=== PATIENT | female | born 1975 | race Hispanic/Latino ===

== ENCOUNTER → 2018-09-08 | Outpatient (CLI) | payer OTHER | END | disposition home or self-care (01) | LOC: RAH 12:59 | PROVIDERS: ATTEND Family Medicine | DX: N60.02 Solitary cyst of left breast (principal); N63.21 Unspecified lump in the left breast, upper outer quadrant | CPT/HCPCS: 76641; 77066 ==

== ENCOUNTER → 2018-12-16 | Outpatient (CLI) | payer OTHER | END | disposition home or self-care (01) | LOC: OIH 11:02 | PROVIDERS: ATTEND Internal Medicine | DX: M06.4 Inflammatory polyarthropathy (principal) | CPT/HCPCS: 73130 ==

== ENCOUNTER 2020-03-28 05:35 | Inpatient (IN) | payer OTHER ==
[~2020-03-28] VITALS: Ht 160 cm; Wt 102.4 kg
[2020-03-28] MEDS ORDERED: METOCLOPRAMIDE 10 MG/2 ML VIAL ONE (06:01)
[2020-03-28] MEDS ORDERED: ONDANSETRON 4MG INJ ONE ×2 (06:01→10:13)
[2020-03-28] MEDS ORDERED: PANTOPRAZOLE 40 MG/VIAL ONE (06:02)
[2020-03-28] MEDS ORDERED: FAMOTIDINE 20MG VIAL IV ONE (06:02)
[2020-03-28 06:39] LABS: BASOPHILS % (AUTO) 0.5 % (0.0-5.0); EOSINOPHILS % (AUTO) 0.4 % (0.0-8.0); HEMATOCRIT 37.9 % (36-48); LYMPHOCYTES % (AUTO) 21.2 % (21.0-51.0); MEAN CORPUSCULAR HEMOGLOBIN 27.7 pg (27.0-33.0); MEAN CORPUSCULAR HGB CONC 33.5 g/dL (32.0-36.0); MEAN CORPUSCULAR VOLUME 82.8 fL (79-99); MONOCYTES % (AUTO) 5.8 % (3.0-13.0); NEUTROPHILS % (AUTO) 71.6 % (40.0-77.0); PLATELET COUNT (AUTO) 378 K/uL (130-400); RED BLOOD CELL COUNT(AUTO) 4.58 MIL/uL (4.00-5.50); RED CELL DISTRIBUTION WIDTH 12.6 % (11.0-15.5); WHITE BLOOD COUNT (AUTO) 10.2 K/uL (4.8-10.8)
[2020-03-28 06:41] LABS: APPEARANCE,URINE CLEAR (CLEAR); BILIRUBIN,URINE NEGATIVE (NEGATIVE); COLOR,URINE YELLOW (YELLOW); GLUCOSE, URINE (UA) NEGATIVE (NEGATIVE); KETONES,URINE NEGATIVE (NEGATIVE); LEUKOCYTE ESTERASE ,URINE NEGATIVE (NEGATIVE); NITRATE,URINE NEGATIVE (NEGATIVE); OCCULT BLOOD,URINE LARGE (NEGATIVE); PROTEIN,URINE 30 mg/dL (NEGATIVE); UROBILINOGEN,URINE 0.2 mg/dL (0.2-1.0)
[2020-03-28 06:49] LABS: POTASSIUM 3.7 mmol/L (3.5-5.1)
[2020-03-28 06:52] LABS: BACTERIA,URINE Few /HPF (None Seen); WBC,URINE 0-1 /HPF (0-1)
[2020-03-28 07:00] LABS: BILIRUBIN,TOTAL 0.3 mg/dL (0.2-1.0); TOTAL PROTEIN, SERUM 8.5 g/dL (6.0-8.3)
[2020-03-28 07:03] LABS: INR 0.97 (0.85-1.15); PROTHROMBIN TIME 10.4 SEC (9.6-11.6)
[2020-03-28 07:04] LABS: PARTIAL THROMBOPLASTIN TIME 29.6 SEC (26.3-35.5)
[2020-03-28] MEDS ORDERED: LIDOCAINE HCL 2% VISCOUS 15 ML UDCUP ONE (07:28)
[2020-03-28] MEDS ORDERED: DiphenhydrAMINE HCL 50 MG/ML VIAL ONE (07:29)
[2020-03-28] MEDS ORDERED: MAG/ALUM/SIMETH 30 ML UDCUP ONE (07:29)
[2020-03-28] MEDS ORDERED: KETOROLAC 30MG VIAL (30MG/ML) ONE ×2 (07:42→07:46)
[2020-03-28] MEDS ORDERED: 0.9%NACL 1000ML 1,000 ML IV ONE ×2 (07:54→13:56)
[2020-03-28] MEDS ORDERED: IOHEXOL-350 75 ML VIAL IV ONE (08:26)
[2020-03-28] MEDS ORDERED: MORPHINE 4 MG SYG ONE (10:13)
[2020-03-28] MEDS ORDERED: ACETAMINOPHEN 325 MG TAB PO PRN (12:30)
[2020-03-28] MEDS ORDERED: KETOROLAC 15MG/ML VIAL (15MG/ML) IV PRN (12:30)
[2020-03-28] MEDS: 0.9%NACL 1000ML 1,000 ML IV SCH ×2 (12:30→23:50)
[2020-03-28] MEDS ORDERED: MORPHINE 2 MG SYG IVP PRN (12:30)
[2020-03-28 18:00] VITALS: BP 120/80
[2020-03-28] MEDS ORDERED: FLUT16H EN (19:08)
[2020-03-28] MEDS ORDERED: CETI10TA87 PO (19:09)
[2020-03-28 20:29] VITALS: BP 121/74
[2020-03-28 23:32] VITALS: BP 134/78
[2020-03-29] VITALS (22 sets, daily range): BP systolic 103–141; BP diastolic 61–89
[2020-03-29] MEDS ORDERED: KETOROLAC 30MG VIAL (30MG/ML) ONE ×3 (03:19→19:37)
[2020-03-29 06:16] LABS: BASOPHILS % (AUTO) 0.4 % (0.0-5.0); EOSINOPHILS % (AUTO) 0.6 % (0.0-8.0); HEMATOCRIT 34.1 % (36-48); LYMPHOCYTES % (AUTO) 25.1 % (21.0-51.0); MEAN CORPUSCULAR HGB CONC 33.1 g/dL (32.0-36.0); MEAN CORPUSCULAR VOLUME 84.6 fL (79-99); MONOCYTES % (AUTO) 6.6 % (3.0-13.0); NEUTROPHILS % (AUTO) 66.6 % (40.0-77.0); PLATELET COUNT (AUTO) 291 K/uL (130-400); RED BLOOD CELL COUNT(AUTO) 4.03 MIL/uL (4.00-5.50); RED CELL DISTRIBUTION WIDTH 12.7 % (11.0-15.5); WHITE BLOOD COUNT (AUTO) 7.1 K/uL (4.8-10.8)
[2020-03-29 06:34] LABS: ALBUMIN 3.1 g/dL (3.5-5.0); BILIRUBIN,TOTAL 0.3 mg/dL (0.2-1.0); CREATININE 0.8 mg/dL (0.5-1.5); POTASSIUM 3.8 mmol/L (3.5-5.1); TOTAL PROTEIN, SERUM 6.9 g/dL (6.0-8.3)
[2020-03-29] MEDS: 0.9%NACL 1000ML 1,000 ML IV SCH ×2 (09:45→18:30)
[2020-03-29] MEDS ORDERED: LIDOCAINE HCL MPF 1% 5ML VIAL ONE (09:50)
[2020-03-29] MEDS ORDERED: SUCCINYLCHOLINE 200MG/10ML SYR ONE (09:50)
[2020-03-29] MEDS ORDERED: PROPOFOL 10 MG/ML 20ML VIAL IV ONE (09:51)
[2020-03-29] MEDS ORDERED: ROCURONIUM 10MG/1ML SYR 10 MG/ML ML ONE (09:51)
[2020-03-29] MEDS ORDERED: FENTANYL CITRATE PF 50 MCG/1 ML 2ML VIAL ONE (09:51)
[2020-03-29] MEDS ORDERED: GLYCOPYRROLATE 1 MG/5 ML SYRINGE ONE (10:41)
[2020-03-29] MEDS ORDERED: NEOSTIGMINE 5MG/5ML SYR IV ONE (10:41)
[2020-03-29] MEDS ORDERED: ONDANSETRON 4MG INJ ONE (10:41)
[2020-03-29] MEDS ORDERED: IOHEXOL 350 MG/ML 100ML INFUS..BTL IV ONE (10:49)
[2020-03-29] MEDS ORDERED: CEFAZOLIN SODIUM 1 GM VIAL ONE (11:09)
[2020-03-29] MEDS ORDERED: CEFAZOLIN SODIUM 1 GM VIAL IVP ONE (11:09)
[2020-03-29] MEDS: ONDANSETRON 4MG INJ IVP PRN ×2 (14:10→23:47)
[2020-03-29] MEDS: IBUPROFEN 800 MG TAB PO SCH ×2 (19:23)
[2020-03-29] MEDS: TAMSULOSIN HCL 0.4 MG CAP.ER.24H PO SCH ×2 (19:23)
[2020-03-29] MEDS ORDERED: LACTULOSE 20 GM/30 ML UDCUP ONE (19:33)
[2020-03-29] MEDS: LACTULOSE 20 GM/30 ML UDCUP PO SCH (21:00)
[2020-03-29] MEDS ORDERED: HYDROMORPHONE 0.5 MG SYG (0.5MG/0.5ML) ONE (23:37)
[2020-03-29] MEDS ORDERED: HYDROMORPHONE 0.5 MG SYG (0.5MG/0.5ML) IVP ONE (23:45)
[2020-03-30] VITALS: BP 156/85
[2020-03-30] MEDS ORDERED: KETOROLAC 30MG VIAL (30MG/ML) ONE (03:25)
[2020-03-30 04:00] VITALS: BP 116/76
[2020-03-30] MEDS: 0.9%NACL 1000ML 1,000 ML IV SCH (04:42)
[2020-03-30 04:47] LABS: MEAN CORPUSCULAR HEMOGLOBIN 27.8 pg (27.0-33.0); MEAN CORPUSCULAR HGB CONC 32.7 g/dL (32.0-36.0); MEAN CORPUSCULAR VOLUME 84.8 fL (79-99); PLATELET COUNT (AUTO) 294 K/uL (130-400); RED BLOOD CELL COUNT(AUTO) 3.89 MIL/uL (4.00-5.50); RED CELL DISTRIBUTION WIDTH 12.8 % (11.0-15.5); WHITE BLOOD COUNT (AUTO) 10.6 K/uL (4.8-10.8)
[2020-03-30 05:07] LABS: ALBUMIN 3.3 g/dL (3.5-5.0); BILIRUBIN,TOTAL 0.3 mg/dL (0.2-1.0); CREATININE 0.7 mg/dL (0.5-1.5); POTASSIUM 3.3 mmol/L (3.5-5.1); TOTAL PROTEIN, SERUM 7.2 g/dL (6.0-8.3)
[2020-03-30 06:53] LABS: LYMPHOCYTES % (MANUAL) 16 % (22-44); MAN.DIFF COMMENT-IMPRESSION MANUAL DIFFERENTIAL; MONOCYTES % (MANUAL) 5 % (2-9); PLATELET MORPHOLOGY COMMENT ADEQUATE; SEGMENTED NEUTROPHILS % 79 % (40-70)
[2020-03-30] MEDS: LACTULOSE 20 GM/30 ML UDCUP PO SCH (09:00)
[2020-03-30 09:41] VITALS: BP 119/74
[2020-03-30] MEDS ORDERED: POTASSIUM CHLORIDE 10% ELIXIR 20 MEQ/15 ML UDCUP PO PRN (10:30)
[2020-03-30] MEDS ORDERED: LIDOCAINE HCL-MPF 1% 2ML VIAL IJ PRN (10:30)
[2020-03-30] MEDS ORDERED: POTASSIUM CHLORIDE 20MEQ/100ML 100 ML IV PRN (10:30)
[2020-03-30] MEDS ORDERED: ACET1TAB25 PO ×2 (13:21→13:25)
[2020-03-30] MEDS: KCL 20 MEQ ERTAB PO PRN ×3 (13:27→15:35)
[2020-03-30 13:48] VITALS: BP 131/75
== END 2020-03-30 16:00 | disposition home or self-care (01) | DRG 694 ==
LOC: EDH 05:35 → EDHIP 12:22 → 3CH 17:30
PROVIDERS: ADMIT Hospitalist; ATTEND Hospitalist
PROC: 0TF6XZZ Fragmentation in Right Ureter, External Approach (ICD-10-PCS; principal; 2020-03-29 10:23)
DX: N13.2 Hydronephrosis with renal and ureteral calculous obstruction (principal); Z68.41 Body mass index [BMI] 40.0-44.9, adult; K59.00 Constipation, unspecified; F41.9 Anxiety disorder, unspecified; K21.9 Gastro-esophageal reflux disease without esophagitis; K58.9 Irritable bowel syndrome, unspecified; E66.01 Morbid (severe) obesity due to excess calories; Z87.442 Personal history of urinary calculi; Z90.49 Acquired absence of other specified parts of digestive tract; Z98.891 History of uterine scar from previous surgery
CPT/HCPCS: 36415; 74018; 74177; 80053; 81001; 81025; 83605; 83690; 83735; 84484; 85025; 85610; 85730; 93005; C9113; G0378; J0330; J0690; J1170; J1200; J1885; J2270; J2405; J2704; J2710; J2765; J3010; J3490; J7030; Q9967

== ENCOUNTER 2020-04-01 17:49 | Emergency (ER) | payer OTHER ==
[~2020-04-01 17:49] MED LIST: ACET1TAB25 PO; CETI10TA86 PO; FLUT16H EN
[2020-04-01] MEDS ORDERED: TAMSULOSIN HCL 0.4 MG CAP.ER.24H ONE (18:18)
[2020-04-01] MEDS ORDERED: SODIUM CHLORIDE 0.9% 100 ML IV ONE (18:19)
[2020-04-01] MEDS ORDERED: SODIUM CHLORIDE 0.9% 1000ML 1,000 ML IV ONE (18:19)
[2020-04-01] MEDS ORDERED: FENTANYL CITRATE PF 50 MCG/1 ML 2ML VIAL ONE (18:19)
[2020-04-01 18:21] LABS: BASOPHILS % (AUTO) 0.5 % (0.0-5.0); EOSINOPHILS % (AUTO) 0.4 % (0.0-8.0); HEMATOCRIT 37.5 % (36-48); LYMPHOCYTES % (AUTO) 14.4 % (21.0-51.0); MEAN CORPUSCULAR HEMOGLOBIN 28.2 pg (27.0-33.0); MEAN CORPUSCULAR HGB CONC 33.9 g/dL (32.0-36.0); MEAN CORPUSCULAR VOLUME 83.1 fL (79-99); PLATELET COUNT (AUTO) 362 K/uL (130-400); RED BLOOD CELL COUNT(AUTO) 4.51 MIL/uL (4.00-5.50); RED CELL DISTRIBUTION WIDTH 12.4 % (11.0-15.5); WHITE BLOOD COUNT (AUTO) 10.4 K/uL (4.8-10.8)
[2020-04-01 18:22] LABS: APPEARANCE,URINE Clear (CLEAR); BILIRUBIN,URINE Negative (NEGATIVE); COLOR,URINE Yellow (YELLOW); GLUCOSE, URINE (UA) Negative (NEGATIVE); KETONES,URINE 15 mg/dL (NEGATIVE); LEUKOCYTE ESTERASE ,URINE Trace (NEGATIVE); NITRATE,URINE Negative (NEGATIVE); OCCULT BLOOD,URINE Small (NEGATIVE); PH,URINE 6.5 (5.0-8.0); PROTEIN,URINE Negative (NEGATIVE); UROBILINOGEN,URINE 0.2 mg/dL (0.2-1.0)
[2020-04-01 18:31] LABS: CREATININE 0.9 mg/dL (0.5-1.5); POTASSIUM 3.7 mmol/L (3.5-5.1)
[2020-04-01 18:35] LABS: BILIRUBIN,TOTAL 0.3 mg/dL (0.2-1.0); TOTAL PROTEIN, SERUM 8.6 g/dL (6.0-8.3)
[2020-04-01 18:58] LABS: BACTERIA,URINE Few /HPF (None Seen); SQUAMOUS EPITHELIAL CELL,UR Few /HPF (0-2)
[2020-04-01 18:59] LABS: MUCUS,URINE Moderate LPF (None Seen)
[2020-04-01] MEDS ORDERED: KETOROLAC TROMETHAMINE 30MG/ML ONE (18:59)
[2020-04-01] MEDS ORDERED: ONDANSETRON ODT 4 MG TAB ONE (20:54)
== END 2020-04-01 21:04 | disposition home or self-care (01) ==
LOC: EDH 17:49
DX: N20.0 Calculus of kidney (principal); F41.9 Anxiety disorder, unspecified; Z98.890 Other specified postprocedural states; Z98.51 Tubal ligation status
CPT/HCPCS: 36415; 74176; 80053; 81001; 83605; 85025; 96365; 96366; 96375; 99284; J1885; J3010; J7030

== ENCOUNTER → 2023-02-14 | Outpatient (CLI) | payer OTHER ==
[~2023-02-14] MED LIST changes: +ACET-2079 PO; -ACET1TAB25 PO; -CETI10TA86 PO; +CETI10TA87 PO
== END | disposition home or self-care (01) ==
LOC: RAH 09:46
PROVIDERS: ATTEND Surgery
DX: K21.00 Gastro-esophageal reflux disease with esophagitis, without bleeding (principal)
CPT/HCPCS: 74240

== ENCOUNTER → 2024-09-02 | Outpatient (CLI) | payer BC, OTHER ==
--- NOTE | 2024-09-02 10:57 | HMCIMG ---
MAMMO SCREENING BILATERAL HISTORY: Screening mammogram. COMPARISON: 09/08/2018 TECHNIQUE: Bilateral screening mammogram with CAD was performed with craniocaudal and mediolateral oblique projections. FINDINGS: There are scattered areas of fibroglandular density. Asymmetric nodular densities are noted in the upper outer quadrant of the left breast. Tomogram and ultrasound are recommended for further evaluation. There are also asymmetric breast density noted in the retroareolar region of the left breast more prominent on previous study. There is no evidence of a dominant mass, or suspicious microcalcification. There is no evidence of nipple retraction or skin thickening. IMPRESSION: 1. Tomogram and ultrasound are recommended for further evaluation. There are also asymmetric breast density noted in the retroareolar region of the left breast more prominent on previous study. Patient was entered into a reminder system with a target due date for their next mammogram. BI-RADS: CATEGORY 0: INCOMPLETE. NEED ADDITIONAL IMAGING EVALUATION Diagnostic mammogram is recommended. Recommend monthly self breast exam as well as annual clinical examination. A negative x-ray should not delay biopsy if a dominant or clinically suspicious mass is present, since 8-10% of cancers are not identified by mammography. Dense breasts particularly, may obscure an underlying neoplasm. Some of these may be detected clinically and therefore, clinical examination is an essential part of breast evaluation.
== END | disposition home or self-care (01) ==
LOC: RAH 09:38
PROVIDERS: ATTEND Obstetrics & Gynecology
DX: Z12.31 Encounter for screening mammogram for malignant neoplasm of breast (principal); R92.323 Mammographic fibroglandular density, bilateral breasts
CPT/HCPCS: 77067